=== PATIENT | female | born 1975 ===

== ENCOUNTER 2021-03-12 07:08 | Day surgery (SDC) | payer OTHER ==
[~2021-03-12 07:08] MED LIST: CLONAZEPAM1 M1 PO; CYMBALTA60 MG PO; LUNESTA2 MG PO; LYRICA50 MG PO; PEPCID AC20 MG PO
== END 2021-03-12 19:40 | disposition home or self-care (01) ==
LOC: CIR.AMB 07:08
PROVIDERS: ATTEND Colon & Rectal Surgery
DX: N81.6 Rectocele (principal); K64.4 Residual hemorrhoidal skin tags; K64.8 Other hemorrhoids; Z20.822 Contact with and (suspected) exposure to COVID-19